=== PATIENT | female | born 1965 | race Caucasian/White ===

== ENCOUNTER 2024-11-16 05:56 | Day surgery (SDC) | payer OTHER, SELFPAY ==
[2024-11-16] VITALS (10 sets, daily range): BP systolic 133–168; BP diastolic 77–106; PULSE 60–84; RESP 15–18; TEMP 35.6–36.1; O2SAT 93–100; BMI 20.7
--- NOTE | 2024-11-16 06:53 | W.PM.OPSUD ---
Surgery/Procedure H&P Update DATE OF PROCEDURE: November 16, 2024 DATE H&P PERFORMED: 10/30/24 H&P UPDATE INFORMATION: I have reviewed H&P completed within last 30 days, I have examined patient prior to procedure, No changes to prior documentation and Risks and benefits of the procedure reviewed PREOP DIAGNOSIS: Right ankle arthritis PLANNED PROCEDURE: Operation Date: 11/16/24 07:00 Proposed Procedures p Hardware Removal Ankle/Foot Ankle Hardware Removal(Right) - JACY Vera Arthrodesis Ankle Ankle Fusion(Right) - JACY Vera Arthrodesis Subtalar Joint Subtalar Joint Fusion(Right) - Silverio Gonzalez DPM
[2024-11-16] MEDS: ceFAZolin 2,000 mg SDV 2000 MG IVP (06:56)
[2024-11-16] MEDS: tranexamic acid 1,000 mg/10mL SDV 1000 MG (06:56)
--- NOTE | 2024-11-16 07:01 | ANES.PREANE2 ---
Pre-Anesthetic Assessment Height/Weight: Height 1.55 m Weight 49.895 kg Temp Pulse Resp BP Pulse Ox O2 Del Method 97 F L 60 18 168/89 96 Room Air 11/16/24 06:10 11/16/24 06:10 11/16/24 06:10 11/16/24 06:10 11/16/24 06:10 11/16/24 06:10 Preop Diagnosis: Right ankle arthritis Operation Date: 11/16/24 07:00 Proposed Procedures p Hardware Removal Ankle/Foot Ankle Hardware Removal(Right) - Silverio Gonzalez DPM s Arthrodesis Ankle Ankle Fusion(Right) - Silverio Gonzalez DPM s Arthrodesis Subtalar Joint Subtalar Joint Fusion(Right) - Silverio Gonzalez DPM Last intake: Intake Last Liquid Date 11/15/24 Last Liquid Time 23:45 Last Solid Date 11/15/24 Last Solid Time 18:00 Medications/Allergies Home Medications ?Medication ?Instructions ?Recorded ?Confirmed ?Last Taken ?Type eszopiclone 3 mg tablet 3 mg PO DAILY 07/12/24 11/16/24 11/14/24 History gabapentin 800 mg tablet 800 mg PO TID 07/12/24 11/16/24 11/15/24 History hydrocodone 7.5 mg-acetaminophen 1 tab PO Q6H 07/12/24 11/16/24 11/16/24 History 325 mg tablet lidocaine 5 % topical patch 1 patch topical DAILY 07/12/24 11/15/24 11/15/24 History olanzapine 10 mg tablet 10 mg PO DAILY 07/12/24 11/16/24 11/15/24 History ondansetron HCl 4 mg tablet 4 mg PO Q6H 07/12/24 11/15/24 Unknown History pantoprazole 40 mg tablet,delayed 40 mg PO DAILY 07/12/24 11/16/24 11/15/24 History release sertraline 100 mg tablet 200 mg PO DAILY 07/12/24 11/16/24 11/15/24 History tizanidine 4 mg tablet 4 mg PO BID 07/12/24 11/16/24 11/15/24 History Allergies Allergy/AdvReac Type Severity Reaction Status Date / Time mirabegron (From Myrbetriq) Allergy Intermediate ADR-Hyperte Verified 10/30/24 14:27 nsion solifenacin (From Vesicare) Allergy Intermediate ALGY-Hives Verified 10/30/24 14:27 tramadol Allergy Intermediate ALGY-Hives Verified 10/30/24 14:27 Current Medications Generic Name Dose Route Start Last Admin Trade Name Freq PRN Reason Stop Dose Admin Sodium Chloride 1,000 mls @ 30 mls/hr 11/16/24 06:15 11/16/24 06:23 Sodium Chloride 0.9% IV 11/17/24 06:14 30 mls/hr .Q24H JEVON Administration PFSH Anesthesia Social History Smoking and tobacco/nicotine status: current every day tobacco/nicotine user (patient reports she is trying to quit) cigarettes Packs smoked per day: 5 [ Other cigarette details: patient is in processing of trying to quit smoking] Second hand smoke exposure: Yes Alcohol intake: current Alcohol intake frequency: holidays/special occasions only Alcohol type: beer and wine Substance/Drug Use: current Substance/Drug use frequency: daily Other substance/drug use details: medical grade Lives independently: Yes Household members: spouse Housing: House Marital status:
--- NOTE | 2024-11-16 07:08 | ANES.PROC ---
Anesthesia Procedures Procedure/Date: 11/16/24 Nerve Block ^: Nerve Block 1: Main Anesthesia: general anesthesia Time Out Performed: Yes Consent: requested by attending/covering physician, from patient, risks and benefits reviewed and patient agrees to proceed Laterality: Right Nerve block location: popliteal Anesthesia monitors applied: pulse oximetry, EKG, BP cuff and oxygen Nerve block position: lateral Anesthetic Used: ropivicaine 0.5% (0.25%) Amount of anesthesia used (mL): 20 Ultrasound used to: recognize landmarks Nerve Stimulator Used?: Yes Interscalene/Femoral BLK: 4 stimuplex 21 g needle used for position and inplane approach, visualize local anesthetic spread and no vascular puncture identified Injection: neg aspiration of heme and paresthesia +/- Patient Tolerated Procedure: well and no complications Complications: none
[2024-11-16] MEDS: BUPivacaine 0.5% INJ 10 mL INJECTION (07:20)
--- NOTE | 2024-11-16 09:22 | P.OP_ITS ---
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 CPT code 34622 2) right ankle fusion. CPT code 90451 3) right subtalar joint fusion. CPT code 70061 Implants: 200 mm [place] active core phantom nail with 5 mm tibial screws and 7.2 mm calcaneal screws in compression mode, 2-0 Vicryl, 4-0 Vicryl, 4-0 nylon Specimens removed/disposition: None Pathology: No pathology specimens Surgeon: Silverio Gonzalez DPM Trap Puller: Blaine Estimated blood loss: 2 1 hour 58 minutes IV fluids: See intraoperative documentation for Urine output: No urine output Complications: No complications Findings: Previous surgical hardware that included anterior locking plate and screws both in the tibia and talus were removed, fragmented and failed hardware also extracted, all previous right ankle arthrodesis hardware removed without complication. Brief History: The patient is a 59-year-old female presenting with a failed ankle joint fusion. The initial surgical procedure intended to immobilize the ankle joint did not achieve successful fusion, leaving the joint mobile and dependent on the structurally compromised hardware. Consequently, the plate and screws have fractured under the mechanical strain, resulting in joint instability and foot deformity. She reports pronounced pain with weight-bearing activities, where the ankle tends to roll and the foot deviates from its natural alignment. The chronicity of her symptoms has led to progressive deformity and persistent pain, exacerbated by weather changes such as increased rainfall. The patient previously encountered complications post-surgery, including improper wound management leading to persistent sore issues and an unfavorable relationship with the original surgeon, thus expressing reluctance to seek follow-up care from them. Procedure: Under mild sedation the patient was brought to the operating room and placed onto the operating table in supine position. A timeout was performed. Of note a right popliteal and adductor block was performed preoperatively per anesthesia. Well-padded pneumatic tourniquet applied to the right high thigh. The right lower extremity was then scrubbed, prepped and draped utilizing normal aseptic technique up to above the knee to visualize the patella for alignment. The right lower extremity was then exanguinated with an Esmarch bandage and tourniquet inflated to 250 mmHg. Attention was directed to the right lateral sinus tarsi where a curvilinear incision was performed sinus tarsi fashion coursing from the inferior portion of the distal fibula toward the base of the fourth metatarsal through skin with a #15 blade, dissection was carried down through subcutaneous tissue down to the layer of the sinus tarsi utilizing a combination of sharp and blunt technique. Care was taken to retract and preserve neurovascular and tendinous structures. All bleeders were ligated and cauterized as necessary. Sural nerve and peroneal tendons were identified and retracted inferiorly for protection. Origin of the extensor digitorum brevis was reflected out of the sinus tarsi which allowed entry into the subtalar joint. Subtalar joint was distracted and curettaged of all articular surface dorsally and plantarly with a bone resurfacing tool followed by saline flush, direct visualization confirmed all cartilage surfaces removed, this was then further prepped for arthrodesis with fenestrating drill bit and a shank and mallet. The incision was then packed with saline moistened Ray-Milagros and attention was then directed to the previous cicatrix of the right anterior ankle from previous surgery directly over the previous incision and new incision was performed through skin with #15 blade with dissection carried down through subcutaneous tissue to the layer of hardware utilizing accommodation of sharp and blunt technique. Care was taken to retract and preserve neurovascular and all tendinous structures. All bleeders were ligated and cauterized as necessary. The previous hardware was extracted both intact and broken screws were removed in total along with plate and passed from the operative field, intraoperative C arm confirmed in all 3 views that no remaining hardware was visualized and successful hardware removal achieved. Attention was then directed to the ankle joint where further preparation for arthrodesis was performed with bone resurfacing total, fenestrating drill bit and shank with mallet at the distal tibia and dorsal talus. The right lower extremity was then evaluated for appropriate arthrodesis alignment this was under direct visualization of the tibia, knee, foot and ankle with slight external rotation, dorsiflexion to neutral and 2 degrees valgus of the calcaneus this position was held temporarily with K wires. Attention was then directed to the inferior heel where an incision was performed through skin with #15 blade with blunt dissection down to the inferior calcaneus and a drill bit tip K wire was then advanced inferior to superior from the calcaneal body mid body of the talus and intramedullary fashion into the tibia under AP, oblique and lateral views of C arm and noted be excellent intramedullary placement. Step drill bit was then advanced followed by reaming for a [place] active core 200 mm intramedullary nail which was then inserted with the outrigger to appropriate depth, temporary fixation was removed and intramedullary nail fixated with two 7.2 mm distal screws and two 5 mm tibial screws with excellent bony apposition and placed within the intramedullary nail per manufacture technique. Outrigger was then explanted and final imaging was performed with the right ankle AP, mortise view and lateral view and noted to be in excellent maintained position in all 3 planes. All incisions were then irrigated with copious amounts of sterile send solution. The sinus tarsi incision was then closed in a layered fashion with reapproximation of the extensor digitorum brevis origin within the sinus tarsi with 2-0 Vicryl, periosteum with 2-0 Vicryl, subcutaneous tissue with 4-0 Vicryl and skin with 4-0 nylon. Remaining stations closed with 4-0 nylon and all incisions dressed with Xeroform, sterile 4 x 4 gauze, Kerlix and Stephane wrap followed by application of a cam boot to the right lower extremity. Tourniquet was then deflated and a prompt hyperemic response was noted to the distal digits of the right foot. Patient tolerated the procedure and anesthesia well and was transferred to the PACU with vital signs stable and vascular status intact. Following a period of postoperative monitoring should be discharged home without home care instructions and scheduled follow-up.
--- NOTE | 2024-11-16 09:22 | W.PM.BPON ---
Date of Procedure: 04/22/23 Surgeon: Silverio Gonzalez DPM Home Health Travel Ot(s): Blaine Procedure(s) performed: Deep hardware removal, subtalar joint fusion, ankle joint fusion all right lower extremity. Findings of the procedure(s): Nonunion right ankle with failed hardware, posttraumatic arthritis right subtalar joint Estimated blood loss: 2 mL Specimen(s) removed: None Post-operative diagnosis: Nonunion right ankle with failed hardware and posttraumatic arthritis right subtalar joint.
--- NOTE | 2024-11-16 09:26 | XRR_ITS ---
PROCEDURE INFORMATION: Exam: XR Right Ankle Exam date and time: 11/16/2024 9:39 AM Age: 59 years old Clinical indication: Device placement; Joint fixation hardware; Prior surgery; Surgery date: Post-operative (0-2 days); Surgery type: Right ankle; Additional info: Post op TECHNIQUE: Imaging protocol: Radiologic exam of the right ankle. Views: 3 or more views. COMPARISON: CR XR ankle RT min 3V* [id number] 06/19/2024 3:32 PM FINDINGS: Bones/joints: There is metallic intramedullary karson present extending through the distal shaft of the tibia, the talus, and calcaneus. This finding is new since prior examination. There are 2 metallic screws traversing the distal aspect of the intramedullary karson. Prior examination showed anterior plate and screws in the distal tibia and calcaneus the screws have all been removed. There are multiple screws in place in the proximal left 1st metatarsal. There is severe sclerosis involving the distal tibia and talus with narrowing of the tibiotalar articulation appearing similar to prior examination. Soft tissues: Normal. XR/XR ankle RT min 3V* [id number] IMPRESSION: 1. New metallic intramedullary karson distal tibia talus and calcaneus. 2. Stable orthopedic hardware 1st metatarsal 3. Severe sclerotic densities in the tibiotalar articulation
[2024-11-16] MEDS: oxyCODONE-APAP 10-325 mg Tablet 1 TAB PO (10:11)
--- NOTE | 2024-11-16 10:50 | ANE.PACU2 ---
Inpatient post-anesthesia follow up: Airway intact: Yes Vital signs: Temperature 96.6 F Pulse Rate 68 Respiratory Rate 17 Blood Pressure 149/91 Pulse Oximetry 96 Oxygen Delivery Me thod Room Air Oxygen Flow Rate Fraction of Inspir ed Oxygen Hydration adequate: Yes Nausea and vomiting: No Pain level: 1 Mental status: Baseline
== END 2024-11-16 10:52 | disposition home or self-care (01) ==
PROVIDERS: PCP Family Medicine; Visit Provider Podiatrist Foot & Ankle Surgery
PROC: (CPT 27870; principal; 2024-11-16 07:00)
PROC: (CPT 27870; 2024-11-16 07:00)
PROC: (CPT 28725; 2024-11-16 07:00)
DX: M96.0 Pseudarthrosis after fusion or arthrodesis (principal); T84.84XA Pain due to internal orthopedic prosthetic devices, implants and grafts, initial encounter; Y72.3 Surgical instruments, materials and otorhinolaryngological devices (including sutures) associated with adverse incidents; Z79.891 Long term (current) use of opiate analgesic; K21.9 Gastro-esophageal reflux disease without esophagitis; F17.210 Nicotine dependence, cigarettes, uncomplicated
CPT/HCPCS: 27870; 28725; 20680; 73610; 76000; C1713; C1762; J0690; J1100; J1171; J1885; J2250; J2405; J2704; J2795; J3010; J3490; J7030; J9999

== ENCOUNTER → 2024-11-29 13:12 | Outpatient (BNVA) | payer OTHER, SELFPAY | PROVIDERS: PCP Family Medicine; Visit Provider Podiatrist Foot & Ankle Surgery | DX: Z98.890 Other specified postprocedural states (principal); M96.0 Pseudarthrosis after fusion or arthrodesis; M25.571 Pain in right ankle and joints of right foot; G89.29 Other chronic pain; T84.84XA Pain due to internal orthopedic prosthetic devices, implants and grafts, initial encounter; Y79.2 Prosthetic and other implants, materials and accessory orthopedic devices associated with adverse incidents; Z72.0 Tobacco use | CPT/HCPCS: 73610 ==

== ENCOUNTER → 2024-12-27 12:58 | Outpatient (BNVA) | payer OTHER, SELFPAY | PROVIDERS: PCP Family Medicine; Visit Provider Podiatrist Foot & Ankle Surgery | DX: Z98.890 Other specified postprocedural states (principal); Z98.1 Arthrodesis status | CPT/HCPCS: 73610 ==

== ENCOUNTER → 2025-01-29 06:50 | Outpatient (BNVA) | payer OTHER, SELFPAY | PROVIDERS: PCP Family Medicine; Visit Provider Podiatrist Foot & Ankle Surgery | DX: Z98.1 Arthrodesis status (principal); Z98.890 Other specified postprocedural states | CPT/HCPCS: 73610 ==